=== PATIENT | female | born 1990 | race Caucasian/White ===

== ENCOUNTER 2018-04-10 14:47 | Emergency (ER) | payer OTHER ==
[2018-04-10] MEDS ORDERED: NS 0.9% 1000 ML* 1,000 ML IV ONE (15:14)
--- NOTE | 2018-04-10 15:22 | ED ---
Influenza-Like Illness - HPI Summary HPI Summary: This patient is a 27 year old F presenting to [facility] with c/o swollen lymph nodes in neck onset last night. Associated sx: chest tightness, mild cough, stiff neck, eye pain, dizziness, nausea, fever. Denies rhinorrhea. Pt denies being . Pt has Hx of UTI. - History of Current Complaint Chief Complaint: EDDizziness Hx Obtained From: Patient Onset/Duration: Sudden Onset, Lasting Days, Still Present Severity: Mild Associated Signs & Symptoms: Fever, Cough - Allergy/Home Medications Allergies/Adverse Reactions: Allergies Allergy/AdvReac Type Severity Reaction Status Date / Time No Known Allergies Allergy Verified 04/10/18 14:55 PMH/Surg Hx/FS Hx/Imm Hx Previously Healthy: Yes Endocrine/Hematology History: Denies: Hx Diabetes Cardiovascular History: Denies: Hx Hypertension History: Reports: Other Problems/Disorders - UTI Infectious Disease History: No Infectious Disease History: Denies: Traveled Outside the [place] in Last 30 Days - Family History Known Family History: Positive: Cardiac Disease - Mother and Father Negative: Diabetes - Social History Occupation: Unemployed - OTHER Lives: With Family Alcohol Use: None Substance Use Type: Reports: None Smoking Status (MU): Former Smoker Review of Systems Positive: Fever Eyes: Other - pos: eye pain Negative: Blurred Vision Positive: Other - pos: swollen lymphnodes. Negative: Epistaxis, Sore Throat, Ear Ache, Nasal Discharge Positive: Chest Pain - "tightness" Positive: Cough - mild. Negative: Shortness Of Breath Positive: Nausea. Negative: Vomiting, Diarrhea Negative: dysuria, hematuria Positive: Other - pos: stiff neck Negative: Rash, Bruising Neurological: Other - pos: dizziness Negative: Headache Negative: Anxious, Depressed All Other Systems Reviewed And Are Negative: No Physical Exam - Summary Physical Exam Summary: Normal Physical Exam: Appearance: Alert, conversive, nontoxic appearing Skin: Warm, dry, no mottling, no rashes, no contusions HEENT: EOMI, PERRL, moist mucous membranes Neck: No masses on the neck. Cervical lymphadenopathy anteriorly and posteriorly. Respiratory: Clear to auscultation, breath sounds present, no rales, no rhonchi , no wheezes Cardiovascular: RRR, pulses are symmetrical in both lower and upper extremities Abdomen: Soft, non-tender Bowel Sounds: Present Musculoskeletal: No CVA tenderness, no obvious deformity, moving all extremities in a grossly normal manner Neurological: A&Ox3, CN II-XII Intact, moving all extremities symmetrically Psychiatric: Normal affect and mood Triage Information Reviewed: Yes Vital Signs On Initial Exam: Initial Vitals Temp Pulse Resp BP Pulse Ox 98.8 F 88 14 122/68 100 04/10/18 14:52 04/10/18 14:52 04/10/18 14:52 04/10/18 14:52 04/10/18 14:52 Vital Signs Reviewed: Yes Diagnostics - Vital Signs Vital Signs Temp Pulse Resp BP Pulse Ox 04/10/18 14:52 98.8 F 88 14 122/68 100 - Laboratory Lab Statement: Any lab studies that have been ordered have been reviewed, and results considered in the medical decision making process. - Radiology Chest XR Xray Interpretation: No Acute Changes - No active cardiopulmonary disease. ED Provider has reviewed this report. Radiology Interpretation Completed By: Radiologist Re-Evaluation - Re-Evaluation First Eval Re-Evaluation Time: 16:40 Change: Worse Comment: Due to elevated fever, gave Tylenol and Motrin and discussed performing rapid strep test part of discharge. Flu Symptom Course/Dx - Course Course Of Treatment: This patient is a 27 year old F presenting to [facility] with c/ o swollen lymph nodes in neck onset last night. Diagnostic tests were cardiopulmonary problems were unremarkable. Temperature was elevated so pt was given Tylenol and Motrin. Peformed rapid strep part of discharge. Discharge plan was discussed with patient and the patient was agreeable with this plan. - Diagnoses Provider Diagnoses: Upper respiratory infection Discharge - Sign-Out/Discharge Documenting (check all that apply): Patient Departure - DC - Discharge Plan Condition: Stable Disposition: HOME Patient Education Materials: Upper Respiratory Infection (ED) Referrals: Ami Hamilton NP [Primary Care Provider] - Additional Instructions: Take tylenol and motrin for pain, fever, or discomfort. return if worse or any new symptoms. Take all other medications as previously instructed. Follow up with your primary care physician this week. - Attestation Statements Document Initiated by Scribe: Yes Documenting Scribe: Anish Sanchez Provider For Whom Scribe is Documenting (Include Credential): Dr. Rhoda Claudio MD Scribe Attestation: I, Anish Sanchez, scribed for Dr. Rhoda Claudio MD on 04/10/18 at 1645.
--- NOTE | 2018-04-10 16:10 | RAD ---
HISTORY: cough COMPARISONS: None VIEWS: 1: frontal AP view of the chest at 4:00 PM FINDINGS: LINES AND TUBES: None. CARDIOMEDIASTINAL SILHOUETTE: The cardiomediastinal silhouette is normal for portable technique. PLEURA: The costophrenic angles are sharp. No pleural abnormalities are noted. LUNG PARENCHYMA: The lungs are clear. ABDOMEN: The upper abdomen is clear. There is no subphrenic gas. BONES AND SOFT TISSUES: No bone or soft tissue abnormalities are noted. IMPRESSION: NO ACTIVE CARDIOPULMONARY DISEASE.
[2018-04-10] MEDS ORDERED: Acetaminophen TAB* 325 MG PO ONE (16:43)
[2018-04-10] MEDS ORDERED: Ibuprofen TAB* 600 MG PO ONE (16:43)
[2018-04-10 16:50] VITALS: BP 130/78
== END 2018-04-10 17:35 | disposition home or self-care (01) ==
LOC: ED 14:47
DX: J06.9 Acute upper respiratory infection, unspecified (principal); R50.9 Fever, unspecified; R05 Cough; R07.9 Chest pain, unspecified; Z87.891 Personal history of nicotine dependence; R11.0 Nausea
CPT/HCPCS: 71045; 87651; 99281; A9270-GY